=== PATIENT | female | born 1990 | race Two or more races ===

== ENCOUNTER 2018-10-04 10:33 | Emergency (ER) | payer OTHER ==
[~2018-10-04] VITALS: Ht 167.6 cm; Wt 100.7 kg
[~2018-10-04 10:33] MED LIST: NO TOMA MED.
[2018-10-04] MEDS ORDERED: ZANTAC150 MG PO (15:37)
[2018-10-04] MEDS ORDERED: INTESTINEX680 M1 PO (15:37)
== END 2018-10-04 16:16 | disposition home or self-care (01) ==
LOC: ER 10:33
DX: R19.7 Diarrhea, unspecified (principal)